=== PATIENT | female | born 1955 | race Caucasian/White ===

== ENCOUNTER 2020-07-22 08:29 | Outpatient (REF) | payer OTHER, SELFPAY ==
--- NOTE | 2020-07-22 08:34 | MM_ITS ---
EXAMINATION: MM SCREENING DIGITAL BREAST TOMOSYNTHESIS, BILATERAL CLINICAL INFORMATION: Screening. Asymptomatic. The lifetime risk of breast cancer based on the Tyrer-Cuzick Model is 10.6%. COMPARISON: Mammography: July 17, 2019 and studies dating back to October 19, 2006 TECHNIQUE: Digital breast tomosynthesis is performed in both the craniocaudal and mediolateral oblique views along with computer-aided detection (CAD). Synthesized 2D images are generated from the tomosynthesis. FINDINGS: The breasts are extremely dense, which lowers the sensitivity of mammography (ACR BI-RADS breast composition Category d). There are no significant masses, abnormal calcifications, or other abnormalities. IMPRESSION: There are no significant changes from prior study. ASSESSMENT: BI-RADS 1: Negative RECOMMENDATION: Routine annual mammography screening. This patient's information was entered into a reminder system with a target due date for their next mammogram.
== END 2020-07-22 08:30 | disposition home or self-care (01) ==
LOC: HO.MAMMO 08:29
PROVIDERS: Visit Provider Internal Medicine
DX: Z12.31 Encounter for screening mammogram for malignant neoplasm of breast (principal)
CPT/HCPCS: 77063; 77067

== ENCOUNTER 2020-07-29 11:35 | Outpatient (REF) | payer OTHER, SELFPAY ==
[2020-07-29 14:46] LABS: Free T4 (Free Thyroxine) 1.03 ng/dL (0.71-1.85); Thyroid Stimulating Hormone 2.02 mIU/mL (0.32-4.0)
== END 2020-07-29 11:36 | disposition home or self-care (01) ==
LOC: HO.HMGCLDS 11:35
PROVIDERS: PCP Internal Medicine; Visit Provider Internal Medicine
DX: Z00.00 Encounter for general adult medical examination without abnormal findings (principal)
CPT/HCPCS: 84439; 84443

== ENCOUNTER 2021-07-16 09:47 | Outpatient (REF) | payer OTHER, SELFPAY ==
[2021-07-16 11:35] LABS: Hematocrit 41.5 % (37-47); Hemoglobin 13.7 g/dl (12.0-16.0); Mean Corpuscular Hemoglobin 29.1 pg (27.0-33.0); Mean Corpuscular Volume 88.1 fL (80-98); Mean Platelet Volume 11.1 fL (9.4-12.3); Platelet Count 218 X10*3/uL (160-400); Red Blood Count 4.71 X10*6/uL (4.20-5.50); Red Cell Distribution Width 13.3 % (11.0-16.0); White Blood Count 6.4 X10*3/uL (4.8-10.8)
[2021-07-16 12:13] LABS: Alanine Aminotransferase 23 U/L (0-31); Albumin Level 4.1 g/dL (3.5-5.0); Alkaline Phosphatase 72 U/L (39-117); Anion Gap 10 (12-20); Aspartate Amino Transferase 16 U/L (5-31); Bilirubin Total 0.4 mg/dL (0.0-1.0); Blood Urea Nitrogen 19 mg/dL (9-16); Calcium 9.4 mg/dL (8.4-10.2); Carbon Dioxide 28 mmol/L (22-29); Chloride 110 mmol/L (96-108); Cholesterol 178 mg/dL; Estimated Glomerular Filt Rate > 60; Glucose Fasting 81 mg/dL (60-99); HDL Cholesterol 62 mg/dL; LDL Cholesterol Calculated 101 mg/dl; Sodium 144 mmol/L (135-145); Total Protein 6.1 g/dL (6.5-8.0); Triglycerides 78 mg/dL
[2021-07-16 12:19] LABS: TSH reflex Free T4 2.42 uIU/mL (0.32-4.0)
== END 2021-07-16 09:48 | disposition home or self-care (01) ==
LOC: HO.HMGCLDS 09:47
PROVIDERS: PCP Internal Medicine; Visit Provider Internal Medicine
DX: Z00.00 Encounter for general adult medical examination without abnormal findings (principal); I10 Essential (primary) hypertension
CPT/HCPCS: 36415; 80053; 80061; 84443; 85027

== ENCOUNTER 2021-07-20 | Outpatient (REF) | payer OTHER, SELFPAY ==
[2021-07-20 14:14] LABS: Appearance Urine CLEAR; Color Urine YELLOW; Glucose Urine UA NEG (NEG); Leukocyte Esterase Urine NEG (NEG); Nitrite Urine NEG (NEG); PH 7.5 (5.0-8.0); Specific Gravity - Urine 1.015 (1.005-1.025); Urine Blood NEG (NEG); Urine Ketones NEG (NEG); Urine Protein NEG (NEG-TRACE)
[2021-07-20 14:25] LABS: Mucus Urine TRACE /LPF; RBC Urine 0 /HPF (0); Squamous Epithelial Cell Urine TRACE /LPF; WBC Urine 0 /HPF (0-4)
== END 2021-07-20 00:01 | disposition home or self-care (01) ==
LOC: HO.HMGCLNP
PROVIDERS: Visit Provider Internal Medicine
DX: Z00.00 Encounter for general adult medical examination without abnormal findings (principal); I10 Essential (primary) hypertension
CPT/HCPCS: 81001

== ENCOUNTER 2021-07-26 08:17 | Outpatient (REF) | payer OTHER, SELFPAY ==
--- NOTE | ~2021-07-26 | MM_ITS ---
EXAMINATION: MM SCREENING DIGITAL BREAST TOMOSYNTHESIS, BILATERAL CLINICAL INFORMATION: Screening. Asymptomatic. The lifetime risk of breast cancer based on the Tyrer-Cuzick Model is 10%. COMPARISON: Mammography: 07/22/2020, 07/17/2019, 05/16/2018 TECHNIQUE: Digital breast tomosynthesis is performed in both the craniocaudal and mediolateral oblique views along with computer-aided detection (CAD). Synthesized 2D images are generated from the tomosynthesis. FINDINGS: The breasts are heterogeneously dense, which may obscure small masses (ACR BI-RADS breast composition Category c). There are no significant masses, abnormal calcifications, or other abnormalities. Parenchymal pattern is similar to prior studies. No developing density. The axilla and skin contours are unremarkable. MM/MM tomosynthesis screening BI IMPRESSION: No mammographic evidence of malignancy. ASSESSMENT: BI-RADS 1: Negative RECOMMENDATION: Routine annual mammography screening. This patient's information was entered into a reminder system with a target due date for their next mammogram.
== END 2021-07-26 08:18 | disposition home or self-care (01) ==
LOC: HO.MAMMO 08:17
PROVIDERS: Visit Provider Internal Medicine
DX: Z12.31 Encounter for screening mammogram for malignant neoplasm of breast (principal)
CPT/HCPCS: 77063; 77067

== ENCOUNTER 2021-08-18 08:48 | Outpatient (REF) | payer OTHER, SELFPAY ==
--- NOTE | ~2021-08-18 | MM_ITS ---
EXAMINATION: BONE DENSITOMETRY CLINICAL INDICATION: Screening. COMPARISON: Baseline BD dated 10/19/2006. TECHNIQUE: Using a [employer] DXA System (software version: 13.1) manufactured by [employer], dual-energy x-ray absorptiometry was performed of the lumbar spine and left hip. The images are of good technical quality. Summary results are attached. FINDINGS: AP SPINE L1-L4: Current: BMD 1.184 g/cm2, Z-score 1.0, T-score 0.0, normal, 3.2% decrease from baseline (<5% change is not significant). Baseline: BMD 1.223 g/cm2. LEFT FEMUR, NECK: Current: BMD 0.817 g/cm2, Z-score -0.5, T-score -1.6, osteopenia. Baseline: BMD 0.927 g/cm2. LEFT FEMUR, TOTAL: Current: BMD 0.969 g/cm2, Z-score 0.5, T-score -0.3, normal, 1.9% decrease from baseline (<5% change is not significant). Baseline: BMD 0.988 g/cm2. IDENTIFIED RISK FACTORS: Menopause, height loss, history of fracture (adult). HISTORY OF FRACTURE: Wrist. MEDICATIONS: Calcium, vitamin D. MM/XR DEXA axial skeleton IMPRESSION: 1. DIAGNOSIS: Osteopenia based on the lowest T-score value of -1.6 in the femoral neck applying World Health Organization criteria. 2. 10-YEAR FRACTURE RISK PREDICTION, FRAX: Major osteoporotic fracture (clinical spine, forearm, hip or shoulder) 15.3%. Hip fracture 1.9%. 3. Treatment Recommendations: NOF guidelines recommend consideration for treatment in postmenopausal women and men age 50 and older presenting with the following: -A hip or vertebral (clinical or morphometric) fracture. -T-score less than or equal to -2.5 at the femoral neck or spine after appropriate evaluation to exclude secondary causes. -Low bone mass at the hip or spine and a 10-year fracture probability by FRAX of greater than or equal to 3% for hip fracture or greater than or equal to 20% for major osteoporotic fracture based on the [place] adapted WHO algorithm. 4. Other Recommendations: All treatment decisions require clinical judgment and consideration of individual patient factors, including patient preferences, comorbidities, previous drug use, risk factors not captured in the FRAX model (e.g. frailty, falls, vitamin D deficiency, increased bone turnover, interval significant decline in bone density) and possible under or overestimation of fracture risk by FRAX. Additional medical evaluation for secondary cause of low bone mineral density may be appropriate. FUTURE SCAN RECOMMENDATION: People with diagnosed cases of osteoporosis or at high risk for fracture should have regular bone mineral density tests. For patients eligible for Medicare, routine testing is allowed once every 2 years. The testing frequency can be increased to one year for patients who have rapidly progressing disease, those who are receiving or discontinuing medical therapy to restore bone mass, or have additional risk factors. .
== END 2021-08-18 08:49 | disposition home or self-care (01) ==
LOC: HO.MAMMO 08:48
PROVIDERS: Visit Provider Internal Medicine
DX: Z13.820 Encounter for screening for osteoporosis (principal); M85.80 Other specified disorders of bone density and structure, unspecified site; Z78.0 Asymptomatic menopausal state; Z98.890 Other specified postprocedural states; Z79.899 Other long term (current) drug therapy
CPT/HCPCS: 77080

== ENCOUNTER 2021-09-07 07:56 | Outpatient (REF) | payer OTHER, SELFPAY ==
--- NOTE | ~2021-09-07 | XR_ITS ---
EXAMINATION: XR HIP, LEFT CLINICAL INFORMATION: Pain COMPARISON: None TECHNIQUE: Two views of the left hip. FINDINGS: No fracture or dislocation. The left hip is well aligned. The joint space is maintained with small osteophytes along the acetabulum. The left hemipelvis is intact. There is a 2.6 cm sclerotic lesion at the intertrochanteric region of the left femur. The margins are somewhat indistinct at some portions of the lesion. No endosteal scalloping. No additional abnormality seen. XR/XR hip LT min 2V IMPRESSION: No acute abnormality. Mild degenerative change of the left hip. Nonspecific sclerotic lesion within the intertrochanteric region of the left femur. In the absence of known malignancy, this could represent bone island. If there is clinical concern, consider MRI.
== END 2021-09-07 07:57 | disposition home or self-care (01) ==
LOC: HO.HMGCX 07:56
PROVIDERS: PCP Internal Medicine; Visit Provider Internal Medicine
DX: M25.552 Pain in left hip (principal)
CPT/HCPCS: 73502

== ENCOUNTER 2022-06-27 15:25 | Outpatient (REF) | payer OTHER, SELFPAY ==
[2022-06-27 15:41] LABS: Appearance Urine Cloudy; Color Urine Yellow; Glucose Urine UA Negative (Negative); Leukocyte Esterase Urine Moderate (2+) (Negative); Nitrite Urine Negative (Negative); PH 5.5 (5.0-9.0); Specific Gravity - Urine 1.025 (1.005-1.025); UMIC TRIGGER UACC YES; Urine Blood Negative (Negative); Urine Ketones Trace mg/dL (Negative); Urine Protein Negative (Neg-Trace)
[2022-06-27 16:00] LABS: Bacteria Urine 1+ (None Seen); Hyaline Casts Urine 0-2 /LPF (0-2); UACC Culture Trigger YES; WBC Urine 21-50 /HPF (0-5)
== END 2022-06-27 15:26 | disposition home or self-care (01) ==
LOC: HO.LNP 15:25
PROVIDERS: Visit Provider Internal Medicine
DX: R31.29 Other microscopic hematuria (principal)
CPT/HCPCS: 81001; 87086; 87088; 87186

== ENCOUNTER 2022-07-15 09:01 | Outpatient (REF) | payer OTHER, SELFPAY ==
--- NOTE | ~2022-07-15 | US_ITS ---
EXAMINATION: US RETROPERITONEAL COMPLETE (RENAL) CLINICAL INFORMATION: Other microscopic hematuria. COMPARISON: Renal ultrasound 05/11/2017 and 08/21/2014. CT of abdomen and pelvis 12/06/2006. TECHNIQUE: Real-time imaging of the kidneys and bladder. FINDINGS: RIGHT KIDNEY: 10.6 x 3.8 x 7.0 cm (SAG x AP x TRV). The kidney is normal in size, contour, and echogenicity. Renal cortical thickness is normal. No calculi or focal parenchymal lesions. No hydronephrosis. There is incidental finding of extrarenal pelvis. LEFT KIDNEY: 11.4 x 4.4 x 5.6 cm (SAG x AP x TRV). The kidney is normal in size, contour, and echogenicity. Renal cortical thickness is normal. No renal calculi or hydronephrosis. There is an anechoic cyst in upper pole measuring 1.7 x 1.2 x 1.2 cm. Also visualized is extrarenal kidney pelvis. BLADDER: Well distended and normal. Bilateral ureteral jets are demonstrated. Prevoid bladder volume is 237 mL. Postvoid bladder volume is 22.6 mL. US/US retroperitoneal comp IMPRESSION: 1. Anechoic cyst upper pole left kidney. 2. No echogenic stones or hydronephrosis. 3. Bilateral extrarenal kidney pelvises. 4. Small postvoid residual bladder volume. Normal bilateral ureteral jets seen.
[2022-07-15 11:25] LABS: MANUAL DIFF FLAG NO
[2022-07-15 11:39] LABS: Basophils Absolute Auto 0.1 X10*3/uL (0.0-0.2); Basophils Percent Auto 1.3 % (0-2); Eosinophils Absolute Auto 0.2 X10*3/uL (0.0-0.4); Eosinophils Percent Auto 4.6 % (0-4); Hematocrit 38.3 % (37.0-47.0); Hemoglobin 12.6 g/dl (12.0-16.0); Imm Gran Abs Auto 0.01 X10*3/uL (0.00-0.03); Imm Gran Pct Auto 0.2 % (0.0-0.4); Lymphocytes Absolute Auto 1.7 X10*3/uL (1.2-4.9); Lymphocytes Percent Auto 33.1 % (20-40); Mean Corpuscular HGB Conc 32.9 g/dl (31.0-35.0); Mean Platelet Volume 11.5 fL (9.4-12.3); Monocytes Absolute Auto 0.4 X10*3/uL (0.1-1.2); Monocytes Percent Auto 7.6 % (2-11); Neutrophils Absolute Auto 2.8 x10*3/uL (2.0-8.3); Neutrophils Percent Auto 53.2 % (45-73); Platelet Count 204 X10*3/uL (160-400); Red Blood Count 4.35 X10*6/uL (4.20-5.50); Red Cell Distribution Width 13.6 % (11.0-16.0); White Blood Count 5.3 X10*3/uL (4.8-10.8)
[2022-07-15 12:11] LABS: Alanine Aminotransferase 40 U/L (0-31); Alkaline Phosphatase 70 U/L (39-117); Anion Gap 15 (12-20); Aspartate Amino Transferase 32 U/L (5-31); Bilirubin Total 0.2 mg/dL (0.0-1.0); Blood Urea Nitrogen 17 mg/dL (9-16); Calcium 9.4 mg/dL (8.4-10.2); Carbon Dioxide 26 mmol/L (22-29); Chloride 102 mmol/L (96-108); Cholesterol 179 mg/dL; Estimated Glomerular Filt Rate > 60; Glucose Fasting 96 mg/dL (60-99); HDL Cholesterol 72 mg/dL; LDL Cholesterol Calculated 94 mg/dl; Potassium 4.5 mmol/L (3.3-5.1); Sodium 138 mmol/L (135-145); Total Protein 5.9 g/dL (6.5-8.0); Triglycerides 66 mg/dL
[2022-07-15 12:17] LABS: TSH reflex Free T4 3.23 uIU/mL (0.32-4.0); Vitamin D 25-OH Total 37.1 ng/mL (>30)
== END 2022-07-15 09:02 | disposition home or self-care (01) ==
LOC: HO.HMGCX 09:01
PROVIDERS: PCP Internal Medicine; Visit Provider Internal Medicine
DX: Z00.00 Encounter for general adult medical examination without abnormal findings (principal); E55.9 Vitamin D deficiency, unspecified; I10 Essential (primary) hypertension
CPT/HCPCS: 36415; 76770; 80053; 80061; 82306; 84443; 85025

== ENCOUNTER 2022-07-25 13:48 | Outpatient (REF) | payer OTHER, SELFPAY ==
[2022-07-25 16:34] LABS: Appearance Urine Clear; Color Urine Yellow; Glucose Urine UA Negative (Negative); Leukocyte Esterase Urine Negative (Negative); Nitrite Urine Negative (Negative); PH 5.5 (5.0-9.0); Specific Gravity - Urine 1.025 (1.005-1.025); Urine Blood Negative (Negative); Urine Ketones Negative (Negative); Urine Protein Negative (Neg-Trace)
== END 2022-07-25 13:49 | disposition home or self-care (01) ==
LOC: HO.HMGCLDS 13:48
PROVIDERS: PCP Internal Medicine; Visit Provider Internal Medicine
DX: R31.29 Other microscopic hematuria (principal)
CPT/HCPCS: 81003

== ENCOUNTER 2022-08-01 07:55 | Outpatient (REF) | payer OTHER, SELFPAY ==
--- NOTE | ~2022-08-01 | MM_ITS ---
EXAMINATION: MM SCREENING DIGITAL BREAST TOMOSYNTHESIS, BILATERAL CLINICAL INFORMATION: Screening. Asymptomatic. The lifetime risk of breast cancer based on the Tyrer-Cuzick Model is 9%. COMPARISON: Mammography: 07/26/2021, 07/22/2020, 07/17/2019 TECHNIQUE: Digital breast tomosynthesis is performed in both the craniocaudal and mediolateral oblique views along with computer-aided detection (CAD). Synthesized 2D images are generated from the tomosynthesis. FINDINGS: The breasts are heterogeneously dense, which may obscure small masses (ACR BI-RADS breast composition Category c). There are no significant masses, abnormal calcifications, or other abnormalities. Parenchymal pattern is similar to prior studies. There is no developing density or architectural abnormality. The axilla and skin contours are unremarkable. No significant changes. MM/MM tomosynthesis screening BI IMPRESSION: No mammographic evidence of malignancy. ASSESSMENT: BI-RADS 1: Negative RECOMMENDATION: Routine annual mammography screening. This patient's information was entered into a reminder system with a target due date for their next mammogram.
== END 2022-08-01 07:56 | disposition home or self-care (01) ==
LOC: HO.MAMMO 07:55
PROVIDERS: Visit Provider Internal Medicine
DX: Z12.31 Encounter for screening mammogram for malignant neoplasm of breast (principal)
CPT/HCPCS: 77063; 77067

== ENCOUNTER 2022-08-26 09:02 | Outpatient (REF) | payer OTHER, SELFPAY ==
[2022-08-26 11:38] LABS: Alanine Aminotransferase 33 U/L (0-31); Albumin Level 4.2 g/dL (3.5-5.0); Alkaline Phosphatase 71 U/L (39-117); Aspartate Amino Transferase 30 U/L (5-31); Bilirubin Direct < 0.2 mg/dL (0.0-0.5); Bilirubin Total 0.4 mg/dL (0.0-1.0); Total Protein 6.4 g/dL (6.5-8.0)
== END 2022-08-26 09:03 | disposition home or self-care (01) ==
LOC: HO.HMGCLDS 09:02
PROVIDERS: PCP Internal Medicine; Visit Provider Internal Medicine
DX: R79.89 Other specified abnormal findings of blood chemistry (principal)
CPT/HCPCS: 36415; 80076

== ENCOUNTER 2023-07-26 07:30 | Outpatient (AMB) | payer OTHER, SELFPAY ==
--- NOTE | 2023-07-26 07:36 | A.OFFPC_ITS ---
Vital Signs 07/26/23 07:38 Height 5 ft 7 in Weight 195 lb BMI 30.5 BP 120/70 Blood Pressure Location Rt brachial Position Sitting Pulse 76 Pulse Source Pulse Oximeter Pulse Oximetry (%) 97 Oxygen Delivery Method Room Air Intake Visit Reasons: Annul PE Allergies No Known Allergies Allergy (Verified 07/26/23 07:38) Medication List - Last Reconciled 07/26/23 by Cristina Khan MD [id number] 50-325-40 mg 1 tab PO Q4-6H PRN ketoconazole 2% 1 appl topical DAILY lisinopril 5 mg PO DAILY Tobacco use date assessed: 01/23/23 Fall risk assessment: No Falls in past year Last assessed Fall Risk: 07/26/23 Dental Screening Dental Screen Date: 07/26/23 Did you have a dental visit in the last 12 months?: Yes Did you have a dental problem in the last 6 months where you did not have access to dental care?: No Was dental information given to patient?: Patient has dentist HPI Annul PE HPI Details Pt presents for PE. PFSH Medical History Hip pain Postmenopausal Annual physical exam HTN (hypertension) Asthma Allergic rhinitis Migraines Surgical History H/O colonoscopy No pertinent past surgical history Family History Father No problems noted. Mother No problems noted. Social History Housing: House Alcohol intake: current Alcohol intake frequency: holidays/special occasions only Patient Tobacco Use Status: Former Tobacco user Quit Date: 35 years e-Cigarette/Vaping Use: Never Used Current occupational status: employed Cognitive needs: No Hearing needs: No Vision needs: Yes Questionnaire PHQ-9 Over the last 2 weeks, how often have you been bothered by any of the following problems? 1. Little interest or pleasure in doing things: not at all 2. Feeling down, depressed, or hopeless: not at all 3. Trouble falling or staying asleep, or sleeping too much: not at all 4. Feeling tired or having little energy: not at all 5. Poor appetite or overeating: not at all 6. Feeling bad about yourself - or that you are a failure or have let yourself or your family down: not at all 7. Trouble concentrating on things, such as reading the newspaper or watching television: not at all 8. Moving or speaking so slowly that other people could have noticed. Or the opposite - being so fidgety or restless that you have been moving around a lot more than usual: not at all 9. Thoughts that you would be better off or of hurting yourself in some way: not at all Total score: 0 Depression Screening Interpretation: Negative Depression Screening Done: Yes Source: Developed by Drs. Fabian Currie, Rashmi Viramontes, Rayo Harrington and colleagues, with an educational andres from [employer]. Thrive Questionnaire Date Thrive assessed: 07/26/23 I am a: Patient What is your living situation today?: I have a steady place to live Within the past 12 months, did the food you bought not last and you didn't have the money to get more?: Never true Within the past 12 months, did you worry whether your food would run out before you got money to buy more?: Never true Do you have trouble paying for medicines?: No Do you have trouble getting transportation to medical appointments?: No Do you have trouble paying your heating and electricity bill?: No Do you have trouble taking care of your child, family member or friend?: No Do you have trouble with day-to-day activities such as bathing, preparing meals, shopping, managing finances, etc.?: No Are you currently unemployed and looking for a job?: No Are you interested in more education?: No Please select the resources that you would like help with: None AUDIT C Alcohol Use Questionnaire (AUDIT-C) 1. How often do you have a drink containing alcohol?: Never 3. How often do you have six or more drinks on one occasion?: Never Total Score: 0 Score Reviewed/Action Taken: No MIGNON-7 AMB Questionnaire MIGNON-7 Date MIGNON - 7 assessed: 07/26/23 Feeling nervous, anxious, or on edge: 0 = Not at all Not being able to stop or control worryin = Not at all Worrying too much about different things: 0 = Not at all Trouble relaxin = Not at all Being so restless that it is hard to sit still: 0 = Not at all Becoming easily annoyed or irritable: 0 = Not at all Feeling afraid as if something awful might happen: 0 = Not at all Total MIGNON-7 score (0-4 normal; 5-9 mild; 10-14 moderate; 15-21 severe): 0 Source: Developed by Drs. Fabian Currie, Rashmi Viramontes, Rayo Harrington and colleagues, with an educational andres from [employer]. Review of Systems Const All systems reviewed & are unremarkable except as noted in HPI and below Reports no additional complaints Eyes Reports no additional complaints ENT Reports no additional complaints Card Reports no additional complaints Resp Reports no additional complaints GI Reports no additional complaints Reports no additional complaints Physical exam (Primary Care) Vital Signs: Last Vital Signs Pulse 76 07/26/23 07:38 BP 120/70 07/26/23 07:38 Pulse Ox 97 07/26/23 07:38 Oxygen Delivery Method Room Air 07/26/23 07:38 BMI result Body Mass Index 30.5 Tobacco/Smoking Status: Tobacco use Status Tobacco use date assessed 01/23/23 07/26/23 07:41 Patient Tobacco Use Status Former Tobacco user 07/26/23 07:41 e-Cigarette/Vaping Use Never Used 07/26/23 07:41 PHQ-9: PHQ-9 Score PHQ-9: Total score 0 07/26/23 08:13 Depression Screening Interpretation: Negative Thrive Assessment: Date of Thrive Assessment Date Thrive assessed 07/26/23 07/26/23 08:13 Const General: no acute distress HENMT Head: Yes normal to inspection Ears: hearing grossly normal bilaterally Face and sinus: Yes normal facial exam Eyes General: appearance normal, both eyes and all related structures Resp Effort & Inspection: normal respiratory effort Auscultation: clear to auscultation bilaterally Cardio Rhythm: regular rhythm Heart sounds: S1 normal heart sound present and S2 normal heart sound present GI Inspection: Yes normal to inspection Palpation (GI): Soft to palpation Percussion: Yes normal to percussion Auscultation: normal bowel sounds Assessment and Plan Assessment & Plan (1) Chronic left-sided low back pain: Code(s): M54.50 - Low back pain, unspecified; G89.29 - Other chronic pain (2) HTN (hypertension): Code(s): I10 - Essential (primary) hypertension Plan: cont Lisinopril (3) Annual physical exam: Code(s): Z00.00 - Encounter for general adult medical examination without abnormal findings Plan: Well-balanced diet regular physical activity discussed with the patient. She is up-to-date with the mammogram colon cancer screening. She will follow-up in 1 year for physical with fasting labs before Orders: Orders XR lumbar spine 2-3V Today G89.29 - Other chronic pain, M54.50 - Low back pain, unspecified TSH reflex Free T4 365 Days I10 - Essential (primary) hypertension, Z00.00 - Encounter for general adult medical examination without abnormal findings Complete Blood Count Auto Diff 365 Days I10 - Essential (primary) hypertension, Z00.00 - Encounter for general adult medical examination without abnormal findings PT Evaluation and Treatment Today G89.29 - Other chronic pain, M54.50 - Low back pain, unspecified Comprehensive [place]. Panel Fast 365 Days I10 - Essential (primary) hypertension, Z00.00 - Encounter for general adult medical examination without abnormal findings Lipid Panel 365 Days I10 - Essential (primary) hypertension, Z00.00 - Encounter for general adult medical examination without abnormal findings Coding Level of Care Code Est Pt Prev Care >65y(59115) Diagnoses Chronic left-sided low back pain M54.50; G89.29 HTN (hypertension) I10 Annual physical exam Z00.00
[2023-07-26 07:38] VITALS: BP 120/70; PULSE 76; O2SAT 97; BMI 30.5
== END 2023-07-26 08:10 | disposition home or self-care (01) ==
PROVIDERS: Visit Provider Internal Medicine
DX: M54.50 Low back pain, unspecified (principal); G89.29 Other chronic pain; I10 Essential (primary) hypertension; Z00.00 Encounter for general adult medical examination without abnormal findings
CPT/HCPCS: 99397

== ENCOUNTER 2023-07-26 08:07 | Outpatient (REF) | payer OTHER, SELFPAY ==
--- NOTE | ~2023-07-26 | XR_ITS ---
EXAMINATION: XR LUMBOSACRAL SPINE CLINICAL INFORMATION: Low back pain COMPARISON: None available. TECHNIQUE: Three views of the lumbosacral spine. FINDINGS: Vertebral bodies are well aligned. There is narrowing of L1-L2 L2-L3 and L3-L4 intervertebral disc spaces. There is no evidence of fractures or subluxations. There is straightening of lumbar lordosis. Subchondral sclerosis seen at the endplates of L2-L3. Pedicles are preserved. There changes of arthropathy in facet joints of L4-L5 and L3-L4. Sacroiliac joints unremarkable. There is questionable 0.6 cm calculus projecting over the transverse process of L2 on the left. Correlate clinically. XR/XR lumbar spine 2-3V IMPRESSION: Multilevel degenerative changes in lumbar spine. Question of left ureteral calculus.
[2023-07-26 11:31] LABS: MANUAL DIFF FLAG NO
[2023-07-26 11:37] LABS: Basophils Absolute Auto 0.1 X10*3/uL (0.0-0.2); Basophils Percent Auto 1.1 % (0-2); Eosinophils Absolute Auto 0.2 X10*3/uL (0.0-0.4); Eosinophils Percent Auto 4.3 % (0-4); Hematocrit 43.1 % (37.0-47.0); Imm Gran Abs Auto 0.01 X10*3/uL (0.00-0.03); Imm Gran Pct Auto 0.2 % (0.0-0.4); Lymphocytes Absolute Auto 1.6 X10*3/uL (1.2-4.9); Lymphocytes Percent Auto 28.8 % (20-40); Mean Corpuscular HGB Conc 32.5 g/dl (31.0-35.0); Mean Corpuscular Hemoglobin 28.5 pg (27.0-33.0); Mean Corpuscular Volume 87.8 fL (80.0-98.0); Mean Platelet Volume 11.4 fL (9.4-12.3); Monocytes Absolute Auto 0.4 X10*3/uL (0.1-1.2); Monocytes Percent Auto 7.9 % (2-11); Neutrophils Absolute Auto 3.2 x10*3/uL (2.0-8.3); Neutrophils Percent Auto 57.7 % (45-73); Platelet Count 198 X10*3/uL (160-400); Red Blood Count 4.91 X10*6/uL (4.20-5.50); Red Cell Distribution Width 13.6 % (11.0-16.0); White Blood Count 5.6 X10*3/uL (4.8-10.8)
[2023-07-26 12:32] LABS: Alanine Aminotransferase 21 U/L (0-31); Albumin Level 4.2 g/dL (3.5-5.0); Alkaline Phosphatase 69 U/L (39-117); Anion Gap 12 (12-20); Aspartate Amino Transferase 18 U/L (5-31); Bilirubin Total 0.4 mg/dL (0.0-1.0); Blood Urea Nitrogen 23 mg/dL (9-16); Calcium 9.9 mg/dL (8.4-10.2); Carbon Dioxide 27 mmol/L (22-29); Chloride 108 mmol/L (96-108); Cholesterol 176 mg/dL (<200); Estimated Glomerular Filt Rate > 60; Glucose Fasting 93 mg/dL (60-99); HDL Cholesterol 68 mg/dL (>40); LDL Cholesterol Calculated 95 mg/dL (<100); Potassium 4.1 mmol/L (3.3-5.1); Sodium 143 mmol/L (135-145); Total Protein 6.5 g/dL (6.5-8.0); Triglycerides 67 mg/dL (<150)
[2023-07-26 12:55] LABS: TSH reflex Free T4 3.22 uIU/mL (0.32-4.0)
== END 2023-07-26 08:08 | disposition home or self-care (01) ==
LOC: HO.HMGCX 08:07
PROVIDERS: PCP Internal Medicine; Visit Provider Internal Medicine
DX: M54.50 Low back pain, unspecified (principal); I10 Essential (primary) hypertension; G89.29 Other chronic pain; Z00.00 Encounter for general adult medical examination without abnormal findings
CPT/HCPCS: 36415; 72100; 80053; 80061; 84443; 85025

== ENCOUNTER 2023-08-07 07:57 | Outpatient (REF) | payer OTHER, SELFPAY | END 2023-08-07 07:58 | disposition home or self-care (01) | LOC: HO.MAMMO 07:57 | PROVIDERS: PCP Internal Medicine; Visit Provider Internal Medicine | DX: Z12.31 Encounter for screening mammogram for malignant neoplasm of breast (principal) | CPT/HCPCS: 77063; 77067 ==

== ENCOUNTER → 2023-08-07 08:00 | Outpatient (BNV) | payer OTHER, SELFPAY | PROVIDERS: PCP Internal Medicine; Visit Provider Radiology Diagnostic Radiology | DX: Z12.31 Encounter for screening mammogram for malignant neoplasm of breast (principal) | CPT/HCPCS: 77063; 77067 ==

== ENCOUNTER 2023-08-23 10:10 | Outpatient (REF) | payer OTHER, SELFPAY ==
--- NOTE | ~2023-08-23 | CT_ITS ---
EXAMINATION: CT ABDOMEN AND PELVIS WITHOUT CONTRAST CLINICAL INFORMATION: Calculus of kidney COMPARISON: A 04/07 TECHNIQUE: Multidetector volumetric imaging was performed from the superior aspect of the liver through the pubic symphysis. Sagittal and coronal reformatted images were obtained on the technologist's workstation. This CT examination was performed using dose optimization techniques as appropriate, variously including the following: *Automated exposure control *Adjustment of mA and/or kV according to patient size (this includes techniques or standardized protocols for targeted exams where dose is matched to indication/reason for exam; i.e. extremities or head) *Use of iterative reconstruction technique DLP: 530 mGy-cm FINDINGS: PROTEIN CHEMIST: Unremarkable. LUNG BASES: 4 mm right lower lobe nodule, 5:3, present on 12/06/2006. Nonenlarged heart. No pericardial effusion. LIVER, GALLBLADDER, AND BILIARY TREE: The liver is normal in size, shape, and attenuation. No focal hepatic lesion or biliary ductal dilatation is present. The gallbladder is unremarkable with no evidence of radiopaque gallstones, gallbladder wall thickening, or obvious pericholecystic inflammatory changes. PANCREAS: Unremarkable. SPLEEN: Unremarkable. ADRENAL GLANDS: No change low density 1.3 cm left adrenal nodule consistent with lipid rich adenoma. KIDNEYS AND URETERS: Comparatively larger lobulated right kidney is stable. Left extrarenal pelvis. No hydronephrosis, hydroureter, or calculi seen. No perinephric stranding. BLADDER: Under distended. GASTROINTESTINAL TRACT: Small hiatal hernia. Decompressed stomach. Nonobstructive bowel pattern. Unremarkable appendix. Diverticulosis without diverticulitis. ABDOMINAL WALL: Small fat filled umbilical hernia. LYMPH NODES: Normal. VASCULAR: Atherosclerotic calcifications nonaneurysmal aorta. Unremarkable inferior vena cava. PELVIC VISCERA: Unremarkable. Phleboliths. OSSEOUS STRUCTURES: T11 hemangioma. L2-L3, sclerosis, spurring and disc space narrowing. CT/CT abdomen pelvis wo IV con IMPRESSION: No CT evidence of renal, ureteral, bladder calculi or hydroureteronephrosis. Stable left lipid rich adenoma. Diverticulosis without diverticulitis. No further follow up for stable 4 mm right lower lobe pulmonary nodule. Fleischner guidelines were followed.
== END 2023-08-23 10:11 | disposition home or self-care (01) ==
LOC: HO.CT 10:10
PROVIDERS: PCP Internal Medicine; Visit Provider Internal Medicine
DX: N20.0 Calculus of kidney (principal)
CPT/HCPCS: 74176

== ENCOUNTER 2023-09-20 08:00 | Outpatient (RCR) | payer OTHER, SELFPAY ==
--- NOTE | 2023-08-04 09:12 | MHC.PT.EP ---
[facility] [place] Office [place] Office [place] Office [address] Toma Wooten [address] [phone] F: [phone] F: [phone] F: [phone] F: [phone] Physical Therapy Plan of Care Date of Evaluation: 08/04/23 Date of Surgery: Diagnosis: This is a 68 yo female presenting to skilled PT with a script for chronic L sided LBP. Assessment: This is a 68 yo female presenting to skilled PT with a script for chronic L sided LBP. Patient reporting ongoing L side low back pain for a few months now, no noted injuries. Pain increases with bending forward, standing up, rolling in bed. Pain improves with cupping and acupuncture which helps for about 2 days, she does this once a month. Pain is described as dull and achy. Pain is constant but can get worse with positioning. Pain is located L side at PSIS. She had an x-ray done: Multilevel degenerative changes in lumbar spine. Question of left ureteral calculus. She will be going for a scan to assess for a kidney stone as well. Assessment reveals pain that ranges from up to a 5/10 at the worst. Patient demos decreased lumbar and thoracic ROM and joint mobility, strength of B gluts and hips, TTP at L side lumbar soft tissues, what appears to be an extended L PSIS and impaired posture with forward head and rounded shoulders, forward flexed trunk. Based on functional limitations, impaired QOL and pain tolerance patient is a good candidate for skilled PT 2x/wk for 4wks. Frequency and Duration: The patient will be seen 2x/wk for 4wks Short Term Goals: Pt will demonstrate improved postural awareness and understanding of core engagement with supine and standing tasks without cues throughout session to improve overall back safety in 2 weeks. Pt will demonstrate centralization of sx in 2 weeks. Pt will continue to reinforce precautions, sitting, standing and ADL modifications with proper body mechanics in 2 wks. [employer] Goals: Pt will demonstrate improved outcome measure by 5 points in 4 weeks for improved functional mobility. Pt will demonstrate ability to bend and lift WNL min to no pain for household tasks in 4 wks. Pt will be I in HEP and compliant in 4wks Treatment Plan: Modalities to reduce pain, spasms and effusion. Manual therapy to restore motion and function. Therapeutic exercise to improve strength and flexibility. Neuromuscular re-education for posture and balance. Therapeutic activities to return to functional activities of daily living. Electronically signed by: Katty Modi PT Please sign and return to therapist. Thank you for your referral.
--- NOTE | 2023-10-11 08:30 | MHC.PT.DC ---
[facility] [place] Office [place] Office [place] Office [address] [phone] F: [phone] F: [phone] F: [phone] F: [phone] Physical Therapy Discharge Report Diagnosis: This is a 68 yo female presenting to skilled PT with a script for chronic L sided LBP. Date of Surgery: Date of Evaluation: 08/04/23 Date of Discharge: 10/11/23 Treatments to Date: 5 Cancellations to Date: 0 No Shows to Date: 0 Discharge Status: Achieved Goals Improved Function Independent with HEP Patient Elected to Stop Discharge Summary: Patient called an reported pain free and ready for DC. She has a sufficient HEP to continue on her own as needed. She has met her goals and is ready for DC. Electronically signed by: Katty Modi PT Please sign and return to therapist. Thank you for your referral.
== END 2023-10-11 08:31 | disposition home or self-care (01) ==
LOC: HO.PTCHIC 08:00
PROVIDERS: PCP Internal Medicine; Visit Provider Internal Medicine
DX: M54.50 Low back pain, unspecified (principal); G89.29 Other chronic pain
CPT/HCPCS: 97014; 97110; 97140; 97162

== ENCOUNTER 2024-02-15 08:16 | Outpatient (AMB) | payer OTHER, SELFPAY ==
[2024-02-15 08:37] VITALS: BP 130/80; PULSE 80; TEMP 36.6; O2SAT 96; BMI 30.9
--- NOTE | 2024-02-15 08:37 | MHC.OFFWIV ---
Intake Vital Signs 02/15/24 08:37 Height 5 ft 7 in Weight 197 lb BMI 30.9 BP 130/80 Blood Pressure Location Lt brachial Position Sitting Pulse 80 Pulse Source Pulse Oximeter Temp 97.8 F Temp Source Temporal Artery Scan Pulse Oximetry (%) 96 Oxygen Delivery Method Room Air Intake Visit Reasons: EP RT ankel swollen/pain Intake Note: pt is here today for rt ankle swollen and pain started 2 weeks ago Patient Tobacco Use Status: Former Tobacco user Quit Date: 35 years Allergies No Known Allergies Allergy (Verified 02/15/24 08:41) Do you need a note to return to daycare/school/sports/work: No HPI HPI Comments History of Present Illness Details 68 y/o female patient who presents to walk in clinic with c/o right ankle swelling and pain x 2 weeks. Denies CP, SOB or trouble with breathing. She is able to walk on it with no problems. Denies injury or trauma. [facility] Medical History Hip pain Postmenopausal Annual physical exam HTN (hypertension) Asthma Allergic rhinitis Migraines Surgical History H/O colonoscopy No pertinent past surgical history Family History Father No problems noted. Mother No problems noted. Social History Housing: House Alcohol intake: current Alcohol intake frequency: holidays/special occasions only Patient Tobacco Use Status: Former Tobacco user Quit Date: 35 years e-Cigarette/Vaping Use: Never Used Current occupational status: employed Cognitive needs: No Hearing needs: No Vision needs: Yes Review of Systems Const All systems reviewed & are unremarkable except as noted in HPI and below Physical Exam Vital Signs: Last Vital Signs Temp 97.8 F 02/15/24 08:37 Pulse 80 02/15/24 08:37 BP 130/80 02/15/24 08:37 Pulse Ox 96 02/15/24 08:37 Oxygen Delivery Method Room Air 02/15/24 08:37 BMI result Body Mass Index 30.9 Const General: comfortable and no acute distress Nutritional Appearance: overweight Orientation/consciousness: patient oriented x3 Neuro General: patient oriented x3, gait normal and moves all extremities Extrem Right lower extremity: full ROM, edema Details: non-pitting and 2+ and ankle Details: swelling, edema and normal ROM; no tenderness, no ecchymosis and no crepitus Left lower extremity: full ROM, normal capillary refill and edema (mild swelling, ) Details: non-pitting and 1+ Psych Speech and movement: Normal speech and movement present Assessment & Plan Assessment & Plan (1) Right ankle swelling: Code(s): M25.471 - Effusion, right ankle Plan: - Small dose of diuretic for 7 days - Wrapped Ankle with Be bandage - Icehot, Elevate the joint - NSAIDs for pain relief. Orders: Orders XR ankle RT min 3V Today M25.471 - Effusion, right ankle Medications: New naproxen 500 mg PO BID 30 tabs 0RF M25.571 - Pain in right ankle and joints of right foot furosemide 20 mg PO DAILY 14 tabs 0RF 7 days M25.471 - Effusion, right ankle Coding Level of Care Code Est Pt Level 3 (66531) Diagnoses Right ankle swelling M25.471 Time Spent (min) 15
== END 2024-02-15 10:20 | disposition home or self-care (01) ==
PROVIDERS: PCP Internal Medicine; Visit Provider Nurse Practitioner Family
DX: M25.471 Effusion, right ankle (principal)
CPT/HCPCS: 99213

== ENCOUNTER 2024-02-15 09:02 | Outpatient (REF) | payer OTHER, SELFPAY ==
--- NOTE | ~2024-02-15 | XR_ITS ---
EXAMINATION: XR ANKLE, RIGHT CLINICAL INFORMATION: 68-year-old female patient complains of right ankle swelling and pain x2 weeks COMPARISON: None available. TECHNIQUE: AP, lateral, and mortise views of the right ankle. FINDINGS: No acute visible fracture or dislocation. The ankle mortise is symmetric. Spurring the dorsal forefoot. A few ossific densities are noted inferior to the medial malleolus potentially representing sequela of remote trauma. Slight enthesopathy at the Achilles tendon insertion site. Joint space alignment otherwise maintained. Small ankle joint effusion. Soft tissue swelling about the ankle greatest along the medial malleolus. XR/XR ankle RT min 3V IMPRESSION: 1. No acute visible fracture or dislocation. 2. Small ankle joint effusion. 3. Soft tissue swelling about the ankle greatest along the medial malleolus. 4. A few ossific densities are noted inferior to the medial malleolus potentially representing sequela of remote trauma.
== END 2024-02-15 09:03 | disposition home or self-care (01) ==
LOC: HO.HMGCX 09:02
PROVIDERS: PCP Internal Medicine; Visit Provider Nurse Practitioner Family
DX: M25.471 Effusion, right ankle (principal)
CPT/HCPCS: 73610

== ENCOUNTER 2024-03-19 07:54 | Outpatient (REF) | payer OTHER, SELFPAY ==
[2024-03-19 10:32] LABS: Appearance Urine Turbid; Color Urine Yellow; Glucose Urine UA Negative (Negative); Leukocyte Esterase Urine Large (3+) (Negative); Nitrite Urine Negative (Negative); PH 5.5 (5.0-9.0); Specific Gravity - Urine 1.015 (1.005-1.025); UMIC TRIGGER UACC YES; Urine Blood Large (3+) (Negative); Urine Ketones Negative (Negative); Urine Protein 100 (2+) mg/dL (Neg-Trace)
[2024-03-19 10:39] LABS: Bacteria Urine 1+ (None Seen); Hyaline Casts Urine 0-2 /LPF (0-2); RBC Urine >20 /HPF (0-2); Squamous Epithelial Cell Urine 0-2 /HPF (0-2); UACC Culture Trigger YES; WBC Urine >50 /HPF (0-5)
== END 2024-03-19 07:55 | disposition home or self-care (01) ==
LOC: HO.HMGCLDS 07:54
PROVIDERS: PCP Internal Medicine; Visit Provider Nurse Practitioner Family
DX: R30.0 Dysuria (principal)
CPT/HCPCS: 81001; 87086; 87088; 87186

== ENCOUNTER 2024-08-12 07:47 | Outpatient (REF) | payer OTHER, SELFPAY | END 2024-08-12 07:48 | disposition home or self-care (01) | LOC: HO.MAMMO 07:47 | PROVIDERS: PCP Internal Medicine; Visit Provider Internal Medicine | DX: Z13.89 Encounter for screening for other disorder (principal) ==

== ENCOUNTER 2024-08-13 07:13 | Outpatient (REF) | payer OTHER, SELFPAY ==
[2024-08-13 10:17] LABS: MANUAL DIFF FLAG NO
[2024-08-13 10:25] LABS: Basophils Absolute Auto 0.1 X10*3/uL (0.0-0.2); Basophils Percent Auto 1.2 % (0-2); Eosinophils Absolute Auto 0.3 X10*3/uL (0.0-0.4); Eosinophils Percent Auto 5.1 % (0-4); Hematocrit 41.6 % (37.0-47.0); Hemoglobin 13.8 g/dl (12.0-16.0); Imm Gran Abs Auto 0.02 X10*3/uL (0.00-0.03); Imm Gran Pct Auto 0.3 % (0.0-0.4); Lymphocytes Absolute Auto 1.9 X10*3/uL (1.2-4.9); Mean Corpuscular HGB Conc 33.2 g/dl (31.0-35.0); Mean Corpuscular Hemoglobin 29.2 pg (27.0-33.0); Mean Corpuscular Volume 88.1 fL (80.0-98.0); Mean Platelet Volume 11.2 fL (9.4-12.3); Monocytes Absolute Auto 0.5 X10*3/uL (0.1-1.2); Monocytes Percent Auto 8.4 % (2-11); Platelet Count 224 X10*3/uL (160-400); Red Blood Count 4.72 X10*6/uL (4.20-5.50); Red Cell Distribution Width 13.9 % (11.0-16.0); White Blood Count 5.7 X10*3/uL (4.8-10.8)
[2024-08-13 10:51] LABS: Alanine Aminotransferase 27 U/L (0-31); Albumin Level 4.1 g/dL (3.5-5.0); Alkaline Phosphatase 72 U/L (39-117); Anion Gap 9 (12-20); Aspartate Amino Transferase 22 U/L (5-31); Bilirubin Total 0.3 mg/dL (0.0-1.0); Blood Urea Nitrogen 22 mg/dL (9-16); Calcium 9.3 mg/dL (8.4-10.2); Carbon Dioxide 28 mmol/L (22-29); Chloride 110 mmol/L (96-108); Cholesterol 168 mg/dL (<200); Estimated Glomerular Filt Rate > 60; Glucose Fasting 100 mg/dL (60-99); HDL Cholesterol 65 mg/dL (>40); LDL Cholesterol Calculated 87 mg/dL (<100); Potassium 3.9 mmol/L (3.3-5.1); Sodium 143 mmol/L (135-145); Total Protein 6.5 g/dL (6.5-8.0); Triglycerides 83 mg/dL (<150)
[2024-08-13 11:13] LABS: TSH reflex Free T4 4.15 uIU/mL (0.32-4.0)
[2024-08-13 11:55] LABS: Free T4 (Free Thyroxine) 1.04 ng/dL (0.71-1.85)
== END 2024-08-13 07:14 | disposition home or self-care (01) ==
LOC: HO.HMGCLDS 07:13
PROVIDERS: PCP Internal Medicine; Visit Provider Internal Medicine
DX: Z00.00 Encounter for general adult medical examination without abnormal findings (principal); I10 Essential (primary) hypertension
CPT/HCPCS: 36415; 80053; 80061; 84439; 84443; 85025

== ENCOUNTER 2024-08-16 08:22 | Outpatient (AMB) | payer OTHER, SELFPAY ==
[2024-08-16 08:37] VITALS: BP 124/72; PULSE 78; O2SAT 98; BMI 30.5
--- NOTE | 2024-08-16 08:37 | MHC.PC.OV ---
Vital Signs 08/16/24 08:37 Height 5 ft 7 in Weight 195 lb BMI 30.5 BP 124/72 Blood Pressure Location Lt brachial Position Sitting Pulse 78 Pulse Source Pulse Oximeter Pulse Oximetry (%) 98 Oxygen Delivery Method Room Air Intake Visit Reasons: Annual PE Intake Note: Pt is here today for PE. Allergies No Known Allergies Allergy (Verified 08/16/24 08:38) Medication List - Last Reconciled 08/16/24 by Cristina Khan MD [id number]-uznpebgmbwuwc-jslh 50-325-40 mg 1 tab PO Q4-6H PRN [collagen PO] ketoconazole 2% 1 appl topical DAILY lisinopril 5 mg PO DAILY mecobalamin (vitamin B12) 1,000 mcg PO DAILY naproxen 500 mg PO BID Tobacco use date assessed: 08/16/24 Fall risk assessment: No Falls in past year Last assessed Fall Risk: 08/16/24 Dental Screening Dental Screen Date: 08/16/24 Did you have a dental visit in the last 12 months?: Yes Did you have a dental problem in the last 6 months where you did not have access to dental care?: No Was dental information given to patient?: Patient has dentist HPI Annual PE HPI Details Pt presents for PE. PFSH Medical History Hip pain Postmenopausal Annual physical exam HTN (hypertension) Asthma Allergic rhinitis Migraines Surgical History H/O colonoscopy No pertinent past surgical history Family History Father No problems noted. Mother No problems noted. Social History Housing: House Alcohol intake: current Alcohol intake frequency: holidays/special occasions only Patient Tobacco Use Status: Former Tobacco user e-Cigarette/Vaping Use: Never Used service: No Current occupational status: employed Cognitive needs: No Hearing needs: No Vision needs: Yes Questionnaire PHQ-9 Over the last 2 weeks, how often have you been bothered by any of the following problems? 1. Little interest or pleasure in doing things: not at all 2. Feeling down, depressed, or hopeless: not at all 3. Trouble falling or staying asleep, or sleeping too much: not at all 4. Feeling tired or having little energy: not at all 5. Poor appetite or overeating: not at all 6. Feeling bad about yourself - or that you are a failure or have let yourself or your family down: not at all 7. Trouble concentrating on things, such as reading the newspaper or watching television: not at all 8. Moving or speaking so slowly that other people could have noticed. Or the opposite - being so fidgety or restless that you have been moving around a lot more than usual: not at all 9. Thoughts that you would be better off or of hurting yourself in some way: not at all Total score: 0 Depression Screening Interpretation: Negative Depression Screening Done: Yes 34463 - PHQ-9 Billing: Yes Source: Developed by Drs. Fabian Currie, Rashmi Viramontes, Rayo Harrington and colleagues, with an educational andres from [employer]. Thrive Questionnaire Date Thrive assessed: 08/16/24 I am a: Patient What is your living situation today?: I have a steady place to live Within the past 12 months, did the food you bought not last and you didn't have the money to get more?: Never true Within the past 12 months, did you worry whether your food would run out before you got money to buy more?: Never true Do you have trouble paying for medicines?: No Do you have trouble getting transportation to medical appointments?: No Do you have trouble paying your heating and electricity bill?: No Do you have trouble taking care of your child, family member or friend?: No Do you have trouble with day-to-day activities such as bathing, preparing meals, shopping, managing finances, etc.?: No Are you currently unemployed and looking for a job?: No Are you interested in more education?: No Please select the resources that you would like help with: None Currently or been in a relationship where the following occur: No concerns reported THRIVE Score: 0 AUDIT C Alcohol Use Questionnaire (AUDIT-C) 1. How often do you have a drink containing alcohol?: Never 3. How often do you have six or more drinks on one occasion?: Never Total Score: 0 MIGNON-7 AMB Questionnaire MIGNON-7 Date MIGNON - 7 assessed: 08/16/24 Feeling nervous, anxious, or on edge: 0 = Not at all Not being able to stop or control worryin = Not at all Worrying too much about different things: 0 = Not at all Trouble relaxin = Not at all Being so restless that it is hard to sit still: 0 = Not at all Becoming easily annoyed or irritable: 0 = Not at all Feeling afraid as if something awful might happen: 0 = Not at all Total MIGNON-7 score (0-4 normal; 5-9 mild; 10-14 moderate; 15-21 severe): 0 Source: Developed by Drs. Fabian Currie, Rashmi Viramontes, Rayo Harrington and colleagues, with an educational andres from [employer]. MIGNON-7 Assessment Billing MIGNON-7 Assessment Tool: MIGNON-7 Assessment 61257 Review of Systems Const All systems reviewed & are unremarkable except as noted in HPI and below Reports no additional complaints Eyes Reports no additional complaints ENT Reports no additional complaints Card Reports no additional complaints Resp Reports no additional complaints GI Reports no additional complaints Reports no additional complaints Physical exam (Primary Care) Vital Signs: Last Vital Signs Pulse 78 08/16/24 08:37 BP 124/72 08/16/24 08:37 Pulse Ox 98 08/16/24 08:37 Oxygen Delivery Method Room Air 08/16/24 08:37 BMI result Body Mass Index 30.5 Tobacco/Smoking Status: Tobacco use Status Tobacco use date assessed 08/16/24 08/16/24 08:43 Patient Tobacco Use Status Former Tobacco user 08/16/24 08:43 e-Cigarette/Vaping Use Never Used 08/16/24 08:43 PHQ-9: PHQ-9 Score PHQ-9: Total score 0 08/16/24 08:50 Depression Screening Interpretation: Negative Thrive Assessment: Date of Thrive Assessment Date Thrive assessed 08/16/24 08/16/24 08:43 Currently or been in a relationship where the following occur: No concerns reported Const General: no acute distress HENMT Head: Yes normal to inspection Face and sinus: Yes normal facial exam Throat: Yes posterior oropharynx normal Eyes General: appearance normal, both eyes and all related structures Neck Neck: Yes no lymphadenopathy and Yes supple Resp Effort & Inspection: normal respiratory effort Auscultation: clear to auscultation bilaterally Cardio Rhythm: regular rhythm Heart sounds: S1 normal heart sound present and S2 normal heart sound present GI Inspection: Yes normal to inspection Palpation (GI): Soft to palpation Percussion: Yes normal to percussion Auscultation: normal bowel sounds Coding Level of Care Code Est Pt Prev Care >65y(40961) Diagnoses HTN (hypertension) I10 Annual physical exam Z00.00 Dysplastic nevi D23.9 Hypothyroid E03.9 Additional Codes MIGNON-7 Assessment Billing - MIGNON-7 Assessment Tool: MIGNON-7 Assessment 52223 ([id number]) PHQ-9 - 74255 - PHQ-9 Billing: Yes ([id number]) Assessment & Plan Assessment & Plan (1) HTN (hypertension): Code(s): I10 - Essential (primary) hypertension Category: Medical Plan: cont Lisinopril (2) Annual physical exam: Code(s): Z00.00 - Encounter for general adult medical examination without abnormal findings Category: Medical Plan: well balanced diet, regular exercise discussed, (3) Dysplastic nevi: Code(s): D23.9 - Other benign neoplasm of skin, unspecified Category: Medical Plan: refer to dermatology (4) Hypothyroid: Comment: borderline , repeat TSH Code(s): E03.9 - Hypothyroidism, unspecified Category: Medical Plan: repeat TSH in 2 months Orders: Orders Comprehensive [place]. Panel Fast 6 Months E03.9 - Hypothyroidism, unspecified, I10 - Essential (primary) hypertension Lipid Panel 6 Months E03.9 - Hypothyroidism, unspecified, I10 - Essential (primary) hypertension TSH reflex Free T4 6 Months E03.9 - Hypothyroidism, unspecified, I10 - Essential (primary) hypertension TSH reflex Free T4 2 Months E03.9 - Hypothyroidism, unspecified Referrals Dermatology Referral D23.9 - Other benign neoplasm of skin, unspecified Medications: Refilled lisinopril 5 mg PO DAILY 90 tabs 3RF Discontinued furosemide Discontinued Reason: Doctor's Order 20 mg PO DAILY 7 days 7 tabs 0RF M25.471 - Effusion, right ankle
== END 2024-08-16 08:59 | disposition home or self-care (01) ==
PROVIDERS: PCP Internal Medicine; Visit Provider Internal Medicine
DX: I10 Essential (primary) hypertension (principal); Z00.00 Encounter for general adult medical examination without abnormal findings; D23.9 Other benign neoplasm of skin, unspecified; E03.9 Hypothyroidism, unspecified

== ENCOUNTER → 2024-08-16 08:22 | Outpatient (BNVA) | payer OTHER, SELFPAY | PROVIDERS: PCP Internal Medicine; Visit Provider Internal Medicine | DX: Z00.00 Encounter for general adult medical examination without abnormal findings (principal); I10 Essential (primary) hypertension; D23.9 Other benign neoplasm of skin, unspecified; E03.9 Hypothyroidism, unspecified | CPT/HCPCS: 96127 ==

== ENCOUNTER 2024-09-26 07:45 | Outpatient (REF) | payer OTHER, SELFPAY | END 2024-09-26 07:46 | disposition home or self-care (01) | LOC: HO.MAMMO 07:45 | PROVIDERS: PCP Internal Medicine; Visit Provider Internal Medicine | DX: Z12.31 Encounter for screening mammogram for malignant neoplasm of breast (principal) | CPT/HCPCS: 77063; 77067 ==

== ENCOUNTER → 2024-09-26 08:00 | Outpatient (BNV) | payer OTHER, SELFPAY | PROVIDERS: PCP Internal Medicine; Visit Provider Internal Medicine | DX: Z12.31 Encounter for screening mammogram for malignant neoplasm of breast (principal) | CPT/HCPCS: 77063; 77067 ==

== ENCOUNTER 2024-10-17 07:48 | Outpatient (REF) | payer OTHER, SELFPAY ==
[2024-10-17 10:51] LABS: TSH reflex Free T4 4.17 uIU/mL (0.32-4.0)
[2024-10-17 11:52] LABS: Free T4 (Free Thyroxine) 1.02 ng/dL (0.71-1.85)
== END 2024-10-17 07:49 | disposition home or self-care (01) ==
LOC: HO.HMGCLDS 07:48
PROVIDERS: PCP Internal Medicine; Visit Provider Internal Medicine
DX: E03.9 Hypothyroidism, unspecified (principal)
CPT/HCPCS: 36415; 84439; 84443

== ENCOUNTER 2025-02-10 07:15 | Outpatient (REF) | payer OTHER, SELFPAY ==
--- OUTSIDE RECORDS SUMMARY | 2025-02-10 07:18 | XMS_ITS | Patient Health Record ---
Author Organization [facility] Address [address] [place] [address] Care Team Providers Care Technical Programs Manager Name Role Phone Cristina Khan MD Primary Care Provider Milagros Vargas Unavailable [phone] Allergies Allergen (clinical drug ingredient) Drug/Non Drug Allergy documented on EMR Reaction Allergy Type Onset Date Status Adhesive Unknown Allergy Active Reason For Referral No Information Medications Medication SIG (Take, Route, Frequency, Duration) Notes Start Date End Date Status Physical Therapy . . . 2-3x/week for 3- 4 weeks 02/02/2021 Active Levalbuterol HCl Act chino Butalbital-Acetaminophen Active Flunisolide Active Breo Ellipta 100-25 MCG/INH Inhalation Active Medrol 4 MG as directed Orally 05/09/2019 Not-Taking Lisinopril 5 MG 1 tablet Orally Active AFO-fixed . 1 . Wear daily for . 06/30/2020 Active Walking Boot/Pneumatic As directed Wear Daily for Until further notice 05/09/2019 Active Xopenex HFA 45 MCG/ACT 1 puff as needed Inhalation every 4 hrs for 30 days 02/05/2018 Active Flunisolide 25 MCG/ACT (0.025%) 2 drops in each nostril Nasally Twice a day for 30 days Active Qcxpnofgnr-JCLN-Kyafeimb 50-325-40 MG TAKE 1 OR 2 TABLETS EVERY 4 HOURS NEEDED FOR HEADACHE. DO NOT EXCEED 6 TABLETS IN 24 HOURS. for 5 Active ZyrTEC Allergy Activ e Calcium Active Immunizations Vaccine Route Administration Date Status Comme nts COVID-19 Moderna Vaccine Unknown 12/01/2020 Administered 1st vaccine 11/22 Social History Tobacco Use: Social History Observation Description Date Details (start date - stop date) Former Smoker NA - NA Tobacco Use/Smoking Question Answer Notes Are you a: former smoker When did you stop smoking? 1993 Additional Findings: Tobacco User Heavy cigarett e smoker (20-39 cigs/day) Additional Findings: Tobacco Non-User Current no n-smoker Alcohol Screen Question Answer Notes Did you have a drink containing alcohol in the p ast year? No Points 0 Interpretation Negative Tobacco use other than smoking: Question Answer Notes Are you an other tobacco user? No Problems Problem Type SNOMED Code ICD Code Onset Dates Problem Status W/U Status Risk Notes Problem [id number] Tarsal tunnel syndrome, left lower limb (G57.52) Active confirmed Problem Localized, primary osteoarthritis of the ankle and/or foot ([id number]) Primary osteoarthri tis, left ankle and foot (M19.072) Active confirmed Plan Of Treatment Pending Test Test Name Order Date MRI : Ankle, left 03/18/2019 X ray : Ankle, left 3V 03/18/2019 X ray : Foot, left 3V 03/18/2019 [id number] TENDON SHEATH/LIGAMENT 0 06/13/2019 Insurance Providers Payer Name Payer Address Payer Phone Subscriber Number Group Number Insured Name Patient Relationship to Insured Coverage Start Date Coverage End Date [employer] [address] [place] [address] [id number] Fausto Lipscomb Self - patient is the insured Medical (General) History Medical History History ICD Code asthma Broken bones Headaches/Migraines High blood pressure migraines non obstructing chronic hydronephrosis o n the left normal colonoscopy [address] Felix allergic rhinitis mammogram 05/2018 [facility] [place] History Surgery Date(Month/Year) cyst removal Kidney drain tube 1979
[2025-02-10 10:49] LABS: Alanine Aminotransferase 30 U/L (0-31); Alkaline Phosphatase 74 U/L (39-117); Anion Gap 10 (12-20); Aspartate Amino Transferase 24 U/L (5-31); Bilirubin Total 0.2 mg/dL (0.0-1.0); Blood Urea Nitrogen 26 mg/dL (9-16); Carbon Dioxide 27 mmol/L (22-29); Chloride 112 mmol/L (96-108); Cholesterol 178 mg/dL (<200); Estimated Glomerular Filt Rate > 60; Glucose Fasting 93 mg/dL (60-99); HDL Cholesterol 63 mg/dL (>40); LDL Cholesterol Calculated 102 mg/dL (<100); Potassium 4.1 mmol/L (3.3-5.1); Sodium 145 mmol/L (135-145); Total Protein 6.2 g/dL (6.5-8.0); Triglycerides 68 mg/dL (<150)
[2025-02-10 11:04] LABS: TSH reflex Free T4 4.77 uIU/mL (0.32-4.0)
[2025-02-10 11:46] LABS: Free T4 (Free Thyroxine) 0.87 ng/dL (0.71-1.85)
== END 2025-02-10 07:16 | disposition home or self-care (01) ==
LOC: HO.HMGCLDS 07:15
PROVIDERS: PCP Internal Medicine; Visit Provider Internal Medicine
DX: I10 Essential (primary) hypertension (principal); E03.9 Hypothyroidism, unspecified
CPT/HCPCS: 36415; 80053; 80061; 84439; 84443

== ENCOUNTER 2025-02-18 08:12 | Outpatient (REF) | payer OTHER, SELFPAY ==
--- NOTE | ~2025-02-18 | XR_ITS ---
EXAMINATION: XR ANKLE, RIGHT CLINICAL INFORMATION: M25.571 - Pain in right ankle and joints of right foot COMPARISON: February 15, 2024. TECHNIQUE: AP, lateral, and mortise views of the right ankle. FINDINGS: Edema pattern, bimalleolar. Well-corticated calcification/calcific abnormality in the medial malleolus. No acute cortical disruption or gross malalignment. No gross joint effusion, anterior tibiotarsal bursa. No subcutaneous emphysema. No lytic or blastic lesions. Small well-corticated calcifications in the soft tissues anterior right lower extremity. XR/XR ankle RT min 3V IMPRESSION: No acute fracture or dislocation. Probable old trauma medial malleolus. Edema pattern, mild, bimalleolar. Electronically signed by: Jose Michel MD 02/18/2025 09:06 AM EDT
== END 2025-02-18 08:13 | disposition home or self-care (01) ==
LOC: HO.HMGCX 08:12
PROVIDERS: PCP Internal Medicine; Visit Provider Internal Medicine
DX: I10 Essential (primary) hypertension (principal); E03.9 Hypothyroidism, unspecified; M25.571 Pain in right ankle and joints of right foot; Z79.899 Other long term (current) drug therapy
CPT/HCPCS: 73610; 96127

== ENCOUNTER 2025-02-18 08:12 | Outpatient (AMB) | payer OTHER, SELFPAY ==
[2025-02-18 08:14] VITALS: BP 134/70; PULSE 75; O2SAT 96; BMI 31.6
--- NOTE | 2025-02-18 08:14 | A.OFFPC_ITS ---
Vital Signs 02/18/25 08:14 Height 5 ft 7 in Weight 202 lb BMI 31.6 BP 134/70 Blood Pressure Location Lt brachial Position Sitting Pulse 75 Pulse Source Pulse Oximeter Pulse Oximetry (%) 96 Oxygen Delivery Method Room Air Intake Visit Reasons: Follow up Intake Note: Pt is here today for a follow up visit on labs. Allergies No Known Allergies Allergy (Verified 02/18/25 08:15) Medication List - Last Reconciled 02/18/25 by Cristina Khan MD czakzmghvm-jusuvhhxdfnig-mvbt 50-325-40 mg 1 tab PO Q4-6H PRN [collagen PO] ketoconazole 2% 1 appl topical DAILY levothyroxine 25 mcg PO DAILY lisinopril 5 mg PO DAILY loratadine (Claritin) 10 mg PO DAILY mecobalamin (vitamin B12) 1,000 mcg PO DAILY naproxen 500 mg PO BID Tobacco use date assessed: 02/18/25 Fall risk assessment: No Falls in past year Last assessed Fall Risk: 02/18/25 Dental Screening Dental Screen Date: 02/18/25 Did you have a dental visit in the last 12 months?: Yes Did you have a dental problem in the last 6 months where you did not have access to dental care?: No Was dental information given to patient?: Patient has dentist HPI Follow up HPI Details Patient presents for the follow-up on hypertension stable on lisinopril. She complains of 3 weeks of right ankle pain worse when starting to walk, slightly improving as patient walks She denies any injury but has been walking on a treadmill 4 times a week for the last few months. [facility] Medical History Hip pain Postmenopausal Annual physical exam HTN (hypertension) Asthma Allergic rhinitis Migraines Surgical History H/O colonoscopy No pertinent past surgical history Family History Father No problems noted. Mother No problems noted. Social History Housing: House Alcohol intake: current Alcohol intake frequency: holidays/special occasions only Patient Tobacco Use Status: Former Tobacco user e-Cigarette/Vaping Use: Never Used service: No Current occupational status: employed Cognitive needs: No Hearing needs: No Vision needs: Yes Questionnaire PHQ-9 Over the last 2 weeks, how often have you been bothered by any of the following problems? 1. Little interest or pleasure in doing things: nearly every day 2. Feeling down, depressed, or hopeless: not at all 3. Trouble falling or staying asleep, or sleeping too much: not at all 4. Feeling tired or having little energy: not at all 5. Poor appetite or overeating: not at all 6. Feeling bad about yourself - or that you are a failure or have let yourself or your family down: not at all 7. Trouble concentrating on things, such as reading the newspaper or watching television: not at all 8. Moving or speaking so slowly that other people could have noticed. Or the opposite - being so fidgety or restless that you have been moving around a lot more than usual: not at all 9. Thoughts that you would be better off or of hurting yourself in some way: not at all Total score: 3 Depression Screening Interpretation: Negative Depression Screening Done: Yes 28258 - PHQ-9 Billing: Yes Source: Developed by Drs. Fabian Currie, Rashmi Viramontes, Rayo Harrington and colleagues, with an educational andres from [employer]. Thrive Questionnaire Date Thrive assessed: 02/18/25 I am a: Patient What is your living situation today?: I have a steady place to live Within the past 12 months, did the food you bought not last and you didn't have the money to get more?: Never true Within the past 12 months, did you worry whether your food would run out before you got money to buy more?: Never true Do you have trouble paying for medicines?: No Do you have trouble getting transportation to medical appointments?: No Do you have trouble paying your heating and electricity bill?: No Do you have trouble taking care of your child, family member or friend?: No Do you have trouble with day-to-day activities such as bathing, preparing meals, shopping, managing finances, etc.?: No Are you currently unemployed and looking for a job?: No Are you interested in more education?: No Please select the resources that you would like help with: None Currently or been in a relationship where the following occur: No concerns reported THRIVE Score: 0 AUDIT C Alcohol Use Questionnaire (AUDIT-C) 1. How often do you have a drink containing alcohol?: Never 3. How often do you have six or more drinks on one occasion?: Never Total Score: 0 MIGNON-7 AMB Questionnaire MIGNON-7 Date MIGNON - 7 assessed: 02/18/25 Feeling nervous, anxious, or on edge: 0 = Not at all Not being able to stop or control worryin = Not at all Worrying too much about different things: 0 = Not at all Trouble relaxin = Not at all Being so restless that it is hard to sit still: 0 = Not at all Becoming easily annoyed or irritable: 0 = Not at all Feeling afraid as if something awful might happen: 0 = Not at all Total MIGNON-7 score (0-4 normal; 5-9 mild; 10-14 moderate; 15-21 severe): 0 Source: Developed by Drs. Fabian Currie, Rashmi Viramontes, Rayo Harrington and colleagues, with an educational andres from [employer]. MIGNON-7 Assessment Billing MIGNON-7 Assessment Tool: MIGNON-7 Assessment 48294 Review of Systems Const All systems reviewed & are unremarkable except as noted in HPI and below Eyes Reports no additional complaints ENT Reports no additional complaints Card Reports no additional complaints Resp Reports no additional complaints GI Reports no additional complaints Reports no additional complaints Physical exam (Primary Care) Vital Signs: Last Vital Signs Pulse 75 02/18/25 08:14 BP 134/70 02/18/25 08:14 Pulse Ox 96 02/18/25 08:14 Oxygen Delivery Method Room Air 02/18/25 08:14 BMI result Body Mass Index 31.6 Tobacco/Smoking Status: Tobacco use Status Tobacco use date assessed 02/18/25 02/18/25 08:18 Patient Tobacco Use Status Former Tobacco user 02/18/25 08:18 e-Cigarette/Vaping Use Never Used 02/18/25 08:18 PHQ-9: PHQ-9 Score PHQ-9: Total score 3 02/18/25 08:18 Depression Screening Interpretation: Negative Thrive Assessment: Date of Thrive Assessment Date Thrive assessed 02/18/25 02/18/25 08:18 Currently or been in a relationship where the following occur: No concerns reported Const General: no acute distress Eyes General: appearance normal, both eyes and all related structures Resp Effort & Inspection: normal respiratory effort Auscultation: clear to auscultation bilaterally Cardio Rhythm: regular rhythm Heart sounds: S1 normal heart sound present and S2 normal heart sound present GI Inspection: Yes normal to inspection Extrem Other: Slightly decreased range of motion right ankle medial aspect tenderness, no soft tissue swelling erythema warmth Coding Level of Care Code Est Pt Level 4 (31172) Diagnoses Ankle pain, right M25.571 Hypothyroid E03.9 HTN (hypertension) I10 Additional Codes MIGNON-7 Assessment Billing - MIGNON-7 Assessment Tool: MIGNON-7 Assessment 62154 ([id number]) PHQ-9 - 99469 - PHQ-9 Billing: Yes ([id number]) Assessment & Plan Assessment & Plan (1) Ankle pain, right: Code(s): M25.571 - Pain in right ankle and joints of right foot Category: Medical Plan: Check x-ray referred to physical therapy and meloxicam 50 mg daily for 10 days is prescribed (2) Hypothyroid: Comment: borderline , repeat TSH Code(s): E03.9 - Hypothyroidism, unspecified Category: Medical Plan: Levothyroxine 25 mcg will be started, patient will recheck TSH in 2 months (3) HTN (hypertension): Code(s): I10 - Essential (primary) hypertension Category: Medical Plan: Continue lisinopril, return for a physical in 6 months Orders: Orders XR ankle RT 2V Today M25.571 - Pain in right ankle and joints of right foot PT Evaluation and Treatment Today M25.571 - Pain in right ankle and joints of right foot Comprehensive [place]. Panel Fast 6 Months E03.9 - Hypothyroidism, unspecified, E55.9 - Vitamin D deficiency, unspecified, I10 - Essential (primary) hyperten yokasta, Z00.00 - Encounter for general adult medical examination without abnormal findings TSH reflex Free T4 2 Months E03.9 - Hypothyroidism, unspecified Lipid Panel 6 Months E03.9 - Hypothyroidism, unspecified, E55.9 - Vitamin D deficiency, unspecified, I10 - Essential (primary) hypertension, Z00.00 - Encounter for general adult medical examination without abnormal findings Complete Blood Count Auto Diff 6 Months E03.9 - Hypothyroidism, unspecified, E55.9 - Vitamin D deficiency, unspecified, I10 - Essential (primary) hypertension, Z00.00 - Encounter for general adult medical examination without abnormal findings TSH reflex Free T4 6 Months E03.9 - Hypothyroidism, unspecified, E55.9 - Vitamin D deficiency, unspecified, I10 - Essential (primary) hypertension, Z00.00 - Encounter for general adult medical examination without abnormal findings Vitamin D 25-OH Total 6 Months E03.9 - Hypothyroidism, unspecified, E55.9 - Vitamin D deficiency, unspecified, I10 - Essential (primary) hypertension, Z00.00 - Encounter for general adult medical examination without abnormal findings Medications: New meloxicam 15 mg PO DAILY 10 tabs 0RF levothyroxine 25 mcg PO DAILY 90 tabs 0RF
== END 2025-02-18 08:45 | disposition home or self-care (01) ==
LOC: HO.HMCC 08:12
PROVIDERS: PCP Internal Medicine; Visit Provider Internal Medicine
DX: M25.571 Pain in right ankle and joints of right foot (principal); E03.9 Hypothyroidism, unspecified; I10 Essential (primary) hypertension

== ENCOUNTER → 2025-02-18 08:50 | Outpatient (BNV) | payer OTHER, SELFPAY | PROVIDERS: PCP Internal Medicine; Visit Provider Radiology Diagnostic Radiology | DX: M25.571 Pain in right ankle and joints of right foot (principal) | CPT/HCPCS: 73610 ==

== ENCOUNTER 2025-04-23 07:41 | Outpatient (REF) | payer OTHER, SELFPAY ==
--- OUTSIDE RECORDS SUMMARY | 2025-04-23 07:44 | XMS_ITS | Patient Health Record ---
Author Organization [facility] Address [address] [place] [address] Care Team Providers Care Leaf Tier Name Role Phone Cristina Khan MD Primary Care Provider Milagros Vargas Unavailable [phone] Allergies Allergen (clinical drug ingredient) Drug/Non Drug Allergy documented on EMR Reaction Allergy Type Onset Date Status Adhesive Unknown Allergy Active Reason For Referral No Information Medications Medication SIG (Take, Route, Frequency, Duration) Notes Start Date End Date Status Physical Therapy . . . 2-3x/week; Duration: 3-4 weeks 02/02/2021 Active Levalbuterol HCl Act chino Butalbital-Acetaminophen Active Flunisolide Active Breo Ellipta 100-25 MCG/INH Inhalation Active Medrol 4 MG as directed Orally 05/09/2019 Not-Taking Lisinopril 5 MG 1 tablet Orally Active AFO-fixed . 1 . Wear daily; Duration: . 06/30/2020 Active Walking Boot/Pneumatic As directed Wear Daily; Duration: Until further notice 05/09/2019 Active Xopenex HFA 45 MCG/ACT 1 puff as needed Inhalation every 4 hrs; Duration: 30 days 02/05/2018 Active Flunisolide 25 MCG/ACT (0.025%) 2 drops in each nostril Nasally Twice a day; Duration: 30 days Active Xvedmoqurd-KEUZ-Uhrxmyhf 50-325-40 MG TAKE 1 OR 2 TABLETS EVERY 4 HOURS NEEDED FOR HEADACHE. DO NOT EXCEED 6 TABLETS IN 24 HOURS.; Duration: 5 Active ZyrTEC Allergy Activ e Calcium [...] Problem Status W/U Status Risk Notes Problem Tarsal tunnel syndrome ([id number]) Tarsal tunnel syndrome, left lower limb (G57.52) Active confirmed Problem Localized, primary osteoarthritis of the ankle and/or foot ([id number]) Primary osteoarthrit is, left ankle and foot (M19.072) Active confirmed Plan Of Treatment Pending Test Test Name Order Date MRI : Ankle, left 03/18/2019 X ray : Ankle, left 3V 03/18/2019 X ray : Foot, left 3V 03/18/2019 [id number] TENDON SHEATH/LIGAMENT 0 06/13/2019 Insurance Providers Payer Name Payer Address Payer Phone Subscriber Number Group Number Insured Name Patient Relationship to Insured Coverage Start Date Coverage End Date [employer] [address] [place] [phone] [id number] Fausto Lipscomb Self - patient is the insured Medical (General) History Medical History History ICD Code asthma Broken bones Headaches/Migraines High blood pressure migraines non obstructing chronic hydronephrosis o n the left normal colonoscopy [address] Felix allergic rhinitis mammogram [place] [facility] [place] History Surgery Date(Month/Year) cyst removal Kidney drain tube 1979
--- OUTSIDE RECORDS SUMMARY | 2025-04-23 07:44 | XMS_ITS | Clinical Summary ---
Author Organization [facility] Address [address] [place] [address] Care Team Providers Care Mysql Developer Name Role Phone Unavailable Primary Care Provider Unavailabl e Medications No known medications Social History Tobacco Use Types Packs/Day Years Used Date Smoking Tobacco: Never Assessed Sex and Gender Information Value Date Recorded Sex Assigned at Not on file Gender Identity Not on file Sexual Orientation Not on file Plan of Treatment Health Maintenance Due Date Last Done Comments Hepatitis C Screening 1954 COVID-19 Vaccine (#1) 1954 Depression Screening 1966 Preventative Health Evaluation 1972 DTap / Tdap / Td (1 - Tdap) 1973 Colon Cancer Screening (Colonoscopy) 1999 Breast Cancer Screening (Mammogram) 2004 Shingrix-Zoster Vaccine (1 of 2) 2004 Fall Risk Assessment 2019 Osteoporosis Screening (DEXA Scan) 2019 Pneumococcal Vaccine (1 of 1 - PCV) 2019 Influenza Vaccine (#1) 2025 RSV Adult > 60+ Yrs or Pregn ant (1 - 1-dose 75+ series) 2029 Hepatitis B Vaccines Aged Out No long er eligible based on patient's age to complete this topic RSV Ped < 20 months Aged Out No longe r eligible based on patient's age to complete this topic
[2025-04-24 09:19] LABS: Lyme Abs Screen <0.90 index
== END 2025-04-23 07:42 | disposition home or self-care (01) ==
LOC: HO.HMGCLDS 07:41
PROVIDERS: PCP Internal Medicine; Visit Provider Internal Medicine
DX: E03.9 Hypothyroidism, unspecified (principal); R21 Rash and other nonspecific skin eruption
CPT/HCPCS: 36415; 84443; 86617; 86618

== ENCOUNTER 2025-05-08 08:00 | Outpatient (RCR) | payer OTHER, SELFPAY ==
--- NOTE | 2025-03-19 08:42 | MHC.PT.EP ---
[facility] [place] Office [place] Office [place] Office [address] Toma Wooten [address] [phone] F: [phone] F: [phone] F: [phone] F: [phone] Physical Therapy Plan of Care Date of Evaluation: 03/19/25 Date of Surgery: n/a Diagnosis: pain in R ankle and joints of foot Assessment: Patient is a 70 year old female presenting to PT with complaints of pain in her R ankle and foot. Pt reports onset of pain began a couple months ago due to insidious onset. She presents today with impairments in pain, ankle ROM, gastroc tightness, soft tissue restrictions, ankle strength, balance. 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 Pt expresses long term care pharmacist goal of reducing pain, and is motivated to work towards this in PT. Clinical presentation today is most consistent with signs and sx associated with R ankle and foot pain and pt will benefit from skilled PT 2 week x 4 weeks to address the following problems and impairments noted upon evaluation: pain, ankle ROM, gastroc tightness, soft tissue restrictions, ankle strength, balance.. These problems limit the patient with the following functional activities: ambulating, stair negotiation, ADLs, standing. The prescribed treatment plan of care is medically necessary. Co-morbidities of none were identified and taken into considerations of plan of care. Pt was educated on HEP, role of PT, prognosis, POC. Frequency and Duration: The patient will be seen 2 x week x 4 weeks Short Term Goals: Pt will demonstrate less tenderness to palpation in 2 weeks. Pt will ability to perform SLS x 10 sec in 2 weeks. Pt will demonstrate improved R ankle MMT strength to 5/5 in 2 weeks. Winchman/Crane Operator Goals: Pt will demonstrate improved LEFI score by 9 points in 4 weeks for improved functional mobility. Pt will demonstrate ability to ambulate with min to no pain in 4 weeks for return to PLOF. Pt will demonstrate ability to negotiate stairs with min to no pain in 4 weeks for improved access to her home. Treatment Plan: Modalities to reduce pain, spasms and effusion. Manual therapy to restore motion and function. Therapeutic exercise to improve strength and flexibility. Neuromuscular re-education for posture and balance. Therapeutic activities to return to functional activities of daily living. Electronically signed by: Marii Parish, PT, DPT, ATC Please sign and return to therapist. Thank you for your referral.
--- NOTE | 2025-05-23 14:31 | MHC.PT.DC ---
[facility] [place] Office [place] Office [address] 140 [facility] [phone] F: [phone] F: [phone] F: [phone] F: [phone] Physical Therapy Discharge Report Diagnosis: pain in R ankle and joints of foot Date of Surgery: n/a Date of Evaluation: 03/19/25 Date of Discharge: 05/23/25 Treatments to Date: 6 Cancellations to Date: 2 No Shows to Date: 0 Discharge Status: Patient Elected to Stop Discharge Summary: Pt cancelled her last remaining appointment and did not reschedule. Therefore pt to be d/c. Electronically signed by: Marii Parish PT, DPT, ATC Please sign and return to therapist. Thank you for your referral.
== END 2025-05-23 14:32 | disposition home or self-care (01) ==
LOC: HO.PTCHIC 08:00
PROVIDERS: PCP Internal Medicine; Visit Provider Internal Medicine
DX: M25.571 Pain in right ankle and joints of right foot (principal)
CPT/HCPCS: 97110; 97140; 97161

== ENCOUNTER 2025-08-22 08:26 | Outpatient (AMB) | payer OTHER, SELFPAY ==
--- NOTE | 2025-08-22 08:27 | MHC.PC.OV ---
Vital Signs 08/22/25 08:28 Height 5 ft 7 in Weight 203 lb BMI 31.8 BP 128/72 Blood Pressure Location Lt brachial Position Sitting Respiration 16 Pulse 86 Pulse Source Pulse Oximeter Pulse Oximetry (%) 96 Oxygen Delivery Method Room Air Intake Visit Reasons: Annual PE Intake Note: Pt is here today for PE. Allergies No Known Allergies Allergy (Verified 08/22/25 08:29) Medication List - Last Reconciled 08/22/25 by Cristina Khan MD jecklnfqmw-ckqsljqjkhfvc-kzqx 50-325-40 mg 1 tab PO Q4-6H PRN [collagen PO] ketoconazole 2% 1 appl topical DAILY levothyroxine 25 mcg PO DAILY lisinopril 10 mg PO DAILY loratadine (Claritin) 10 mg PO DAILY mecobalamin (vitamin B12) 1,000 mcg PO DAILY naproxen 500 mg PO BID Tobacco use date assessed: 08/22/25 Fall risk assessment: No Falls in past year Last assessed Fall Risk: 08/22/25 Dental Screening Dental Screen Date: 02/18/25 HPI Annual PE HPI Details Patient presents for physical PFSH Medical History (Updated 08/22/25 @ 09:17 by Cristina Khan MD) Colon cancer screening Nephrolithiasis Vitamin D deficiency Hypothyroid Hip pain Postmenopausal Annual physical exam HTN (hypertension) Asthma Allergic rhinitis Migraines Surgical History H/O colonoscopy No pertinent past surgical history Family History Father No problems noted. Mother No problems noted. Social History Housing: House Alcohol intake: current Alcohol intake frequency: holidays/special occasions only Patient Tobacco Use Status: Former Tobacco user e-Cigarette/Vaping Use: Never Used service: No Current occupational status: employed Cognitive needs: No Hearing needs: No Vision needs: Yes Questionnaire Thrive Questionnaire Date Thrive assessed: 02/18/25 I am a: Patient What is your living situation today?: I have a steady place to live Within the past 12 months, did the food you bought not last and you didn't have the money to get more?: Never true Within the past 12 months, did you worry whether your food would run out before you got money to buy more?: Never true Do you have trouble paying for medicines?: No Do you have trouble getting transportation to medical appointments?: No Do you have trouble paying your heating and electricity bill?: No Do you have trouble taking care of your child, family member or friend?: No Do you have trouble with day-to-day activities such as bathing, preparing meals, shopping, managing finances, etc.?: No Are you currently unemployed and looking for a job?: No Are you interested in more education?: No Please select the resources that you would like help with: None Currently or been in a relationship where the following occur: No concerns reported THRIVE Score: 0 MIGNON-7 AMB Questionnaire MIGNON-7 Date MIGONN - 7 assessed: 02/18/25 Source: Developed by Drs. Fabian Currie, Rashmi Viramontes, Rayo Harrington and colleagues, with an educational andres from [employer]. Review of Systems Const All systems reviewed & are unremarkable except as noted in HPI and below Eyes Reports no additional complaints ENT Reports no additional complaints Card Reports no additional complaints Resp Reports no additional complaints GI Reports no additional complaints Reports no additional complaints Musc Reports no additional complaints Physical exam (Primary Care) Vital Signs: Last Vital Signs Pulse 86 08/22/25 08:28 Resp 16 08/22/25 08:28 BP 128/72 08/22/25 08:28 Pulse Ox 96 08/22/25 08:28 Oxygen Delivery Method Room Air 08/22/25 08:28 BMI result Body Mass Index 31.8 Tobacco/Smoking Status: Tobacco use Status Tobacco use date assessed 08/22/25 08/22/25 08:32 Patient Tobacco Use Status Former Tobacco user 08/22/25 08:29 e-Cigarette/Vaping Use Never Used 08/22/25 08:29 Thrive Assessment: Date of Thrive Assessment Date Thrive assessed 02/18/25 08/22/25 08:29 Currently or been in a relationship where the following occur: No concerns reported Const General: no acute distress HENMT Head: Yes normal to inspection Ears: TM's normal bilaterally Face and sinus: Yes normal facial exam Throat: Yes posterior oropharynx normal Eyes General: appearance normal, both eyes and all related structures Neck Neck: Yes no lymphadenopathy and Yes supple Resp Effort & Inspection: normal respiratory effort Auscultation: clear to auscultation bilaterally Cardio Rhythm: regular rhythm Heart sounds: S1 normal heart sound present and S2 normal heart sound present GI Inspection: Yes normal to inspection Palpation (GI): Soft to palpation Percussion: Yes normal to percussion Auscultation: normal bowel sounds Coding Level of Care Code Est Pt Prev Care >65y(01004) Diagnoses HTN (hypertension) I10 Hypothyroid E03.9 Postmenopausal Z78.0 Colon cancer screening Z12.11 Annual physical exam Z00.00 Assessment & Plan Assessment & Plan (1) HTN (hypertension): Code(s): I10 - Essential (primary) hypertension Category: Medical Plan: Increase lisinopril to 10 mg a day follow-up in 1 month with a fasting labs before (2) Hypothyroid: Comment: on levothyroxine Code(s): E03.9 - Hypothyroidism, unspecified Category: Medical Plan: Continue levothyroxine check TSH (3) Postmenopausal: Code(s): Z78.0 - Asymptomatic menopausal state Category: Medical Plan: Schedule DEXA (4) Colon cancer screening: Comment: 08/2022 negative Cologuard Code(s): Z12.11 - Encounter for screening for malignant neoplasm of colon Category: Medical Plan: Check Cologuard (5) Annual physical exam: Code(s): Z00.00 - Encounter for general adult medical examination without abnormal findings Category: Medical Plan: Well-balanced diet regular physical activity discussed with the patient. She is up-to-date with the mammogram, DEXA will be scheduled Orders: Orders XR chest 1V Today R05.9 - Cough, unspecified Lipid Panel Today E03.9 - Hypothyroidism, unspecified, E55.9 - Vitamin D deficiency, unspecified, I10 - Essential (primary) hypertension XR DEXA axial skeleton Today Z78.0 - Asymptomatic menopausal state Comprehensive [place]. Panel Fast Today E03.9 - Hypothyroidism, unspecified, E55.9 - Vitamin D deficiency, unspecified, I10 - Essential (primary) hypertension Complete Blood Count Auto Diff Today E03.9 - Hypothyroidism, unspecified, E55.9 - Vitamin D deficiency, unspecified, I10 - Essential (primary) hypertension TSH reflex Free T4 Today E03.9 - Hypothyroidism, unspecified, E55.9 - Vitamin D deficiency, unspecified, I10 - Essential (primary) hypertension Vitamin D 25-OH Total Today E03.9 - Hypothyroidism, unspecified, E55.9 - Vitamin D deficiency, unspecified, I10 - Essential (primary) hypertension Referrals Cologuard Test Z12.11 - Encounter for screening for malignant neoplasm of colon, Z12.12 - Encounter for screening for malignant neoplasm of rectum Medications: New lisinopril 10 mg PO DAILY 90 tabs 1RF Discontinued lisinopril Discontinued Reason: Doctor's Order 5 mg PO DAILY 90 tabs 3RF
[2025-08-22 08:28] VITALS: BP 128/72; PULSE 86; RESP 16; O2SAT 96; BMI 31.8
--- OUTSIDE RECORDS SUMMARY | 2025-08-22 08:29 | XMS_ITS | Clinical Summary ---
Author Organization [facility] Address [address] [place] [address] Care Team Providers Care Human Relations Manager Name Role Phone Unavailable Primary Care Provider [...]
== END 2025-08-22 09:18 | disposition home or self-care (01) ==
LOC: HO.HMCC 08:27
PROVIDERS: PCP Internal Medicine; Visit Provider Internal Medicine
DX: Z00.00 Encounter for general adult medical examination without abnormal findings (principal); I10 Essential (primary) hypertension; E03.9 Hypothyroidism, unspecified; Z78.0 Asymptomatic menopausal state; Z12.11 Encounter for screening for malignant neoplasm of colon; Z23 Encounter for immunization

== ENCOUNTER → 2025-08-22 08:26 | Outpatient (BNVA) | payer OTHER, SELFPAY | PROVIDERS: PCP Internal Medicine; Visit Provider Internal Medicine | DX: Z00.00 Encounter for general adult medical examination without abnormal findings (principal); I10 Essential (primary) hypertension; E03.9 Hypothyroidism, unspecified; R05.9 Cough, unspecified; E55.9 Vitamin D deficiency, unspecified; Z23 Encounter for immunization; Z78.0 Asymptomatic menopausal state | CPT/HCPCS: 90471; 90677 ==

== ENCOUNTER 2025-09-17 08:30 | Outpatient (REF) | payer OTHER, SELFPAY ==
--- NOTE | ~2025-09-17 | XR_ITS ---
EXAMINATION: XR CHEST CLINICAL INFORMATION: R05.9 - Cough, unspecified COMPARISON: Previous chest x-ray November 2016 TECHNIQUE: Frontal view of the chest was obtained. FINDINGS: The lungs are clear. No consolidation or pulmonary edema. No pleural effusion or pneumothorax. Cardiac and mediastinal contours are stable. Mild scoliosis and degenerative changes of the spine. XR/XR chest 1V IMPRESSION: No evidence for acute disease in the chest. Electronically signed by: Francisca Renteria MD 09/17/2025 11:58 AM [facility]
--- OUTSIDE RECORDS SUMMARY | 2025-09-17 08:47 | XMS_ITS | Patient Health Record ---
Author Organization [facility] Address [address] [place] [address] Care Team Providers Care Roofer Assistant Name Role Phone Cristina Khan MD Primary Care Provider Milagros Vargas Unavailable [phone] Allergies Allergen (clinical drug ingredient) Drug/Non Drug [...] Twice a day; Duration: 30 days Active [id number] 50-325-40 MG TAKE 1 OR 2 TABLETS [...] Status Risk Notes Problem Tarsal tunnel syndrome (27752750) Tarsal tunnel syndrome, left lower limb (G57.52) Active confirmed Problem Localized, primary osteoarthritis of the ankle and/or foot (260537275) Primary osteoarthrit is, left ankle and foot (M19.072) Active confirmed Plan Of Treatment Pending Test Test Name Order Date MRI : Ankle, left 03/18/2019 X ray : Ankle, left 3V 03/18/2019 X ray : Foot, left 3V 03/18/2019 [id number] TENDON SHEATH/LIGAMENT 0 06/13/2019 Insurance Providers Payer Name Payer Address Payer Phone Subscriber Number Group Number Insured Name Patient Relationship to Insured Coverage Start Date Coverage End Date [employer]a [address] [place] [address] [phone] [id number] Fausto Lipscomb Self - patient is the insured Medical (General) History Medical History History ICD Code asthma Broken bones Headaches/Migraines High blood pressure migraines non obstructing chronic hydronephrosis o n the left normal colonoscopy [address] Felix allergic rhinitis mammogram 05/2018 [facility] [place] Surgical History Surgery Date(Month/Year) cyst removal Kidney drain tube 1979
--- OUTSIDE RECORDS SUMMARY | 2025-09-17 08:47 | XMS_ITS | Clinical Summary ---
Author Organization [facility] Prior to 03/01/25 Address [address] [place] [address] Care Team Providers Care Specialty Therapist Name Role Phone Unavailable Primary Care Provider [...]
[2025-09-17 10:38] LABS: MANUAL DIFF FLAG NO
[2025-09-17 10:56] LABS: Hematocrit 42.2 % (37.0-47.0); Hemoglobin 14.0 g/dl (12.0-16.0); Imm Gran Abs Auto 0.01 X10*3/uL (0.00-0.03); Imm Gran Pct Auto 0.2 % (0.0-0.4); Lymphocytes Absolute Auto 1.7 X10*3/uL (1.2-4.9); Mean Corpuscular HGB Conc 33.2 g/dl (31.0-35.0); Mean Corpuscular Hemoglobin 28.9 pg (27.0-33.0); Mean Corpuscular Volume 87.2 fL (80.0-98.0); NRBC Abs Auto 0.000 X10*3/uL (0.0-0.012); NRBC Pct Auto 0.0 /100WBC (0.0-0.2); Platelet Count 215 X10*3/uL (160-400); Red Blood Count 4.84 X10*6/uL (4.20-5.50); White Blood Count 5.7 X10*3/uL (4.8-10.8)
[2025-09-17 11:32] LABS: Alanine Aminotransferase 28 U/L (0-31); Albumin Level 4.3 g/dL (3.5-5.0); Alkaline Phosphatase 72 U/L (39-117); Anion Gap 11 (12-20); Aspartate Amino Transferase 26 U/L (5-31); Blood Urea Nitrogen 20 mg/dL (9-16); Calcium 9.6 mg/dL (8.4-10.2); Carbon Dioxide 28 mmol/L (22-29); Chloride 108 mmol/L (96-108); Cholesterol 160 mg/dL (<200); Estimated Glomerular Filt Rate > 60; HDL Cholesterol 68 mg/dL (>40); Potassium 4.3 mmol/L (3.3-5.1); Sodium 143 mmol/L (135-145); Total Protein 6.4 g/dL (6.5-8.0); Triglycerides 74 mg/dL (<150)
== END 2025-09-17 08:31 | disposition home or self-care (01) ==
LOC: HO.HMGCX 08:30
PROVIDERS: PCP Internal Medicine; Visit Provider Internal Medicine
DX: R05.9 Cough, unspecified (principal); I10 Essential (primary) hypertension; E03.9 Hypothyroidism, unspecified; E55.9 Vitamin D deficiency, unspecified
CPT/HCPCS: 36415; 71045; 80053; 80061; 82306; 84443; 85025

== ENCOUNTER → 2025-09-17 08:34 | Outpatient (BNV) | payer OTHER, SELFPAY | PROVIDERS: PCP Internal Medicine; Visit Provider Radiology Diagnostic Radiology | DX: R05.9 Cough, unspecified (principal) | CPT/HCPCS: 71045 ==